=== PATIENT | female | born 1990 | race Caucasian/White ===

== ENCOUNTER 2019-04-04 09:39 | Outpatient (CLI) | payer BC ==
--- NOTE | 2019-04-04 13:55 | HP ---
HISTORY OF PRESENT ILLNESS: Ms. Meghan Bryan is a pleasant 28-year-old, who presents to the Wound Center for evaluation of an ulceration of the right lateral foot in the region of the fifth metatarsophalangeal joint. The patient states that she noted the presence of a callus for several months. She states that when the callus began causing pain on a daily basis in mid November, she applied drops, which she purchased from [employer] in the morning and evening. She states that within 3 days she had developed an open wound and over the next 3 to 4 days, the wound bed became "dark." The patient states that she was seen by her nurse practitioner, and for an infectious process associated with the wound, referred to Podiatry. The patient states that she was seen by Podiatry for 3 to 4 visits over the next 6 weeks. She states that from Podiatry, she was were referred to the [facility]. She states that between her last visit with Podiatry and her first Wound Center visit, she was diagnosed with diabetes mellitus for which she has been seen by Dr. Delgadillo. The patient states that she was seen at the [facility] every 3 weeks for approximately 10 weeks. She states that she has had a 20% decrease in the depth of the wound over these 10 weeks. She states that she has been prescribed 2 "rounds" of silver dressings. She states that she was placed in a total contact cast, which she was only able to tolerate for 2 days. She states that at work she has been on light duty since being seen by Podiatry. The patient was referred to the [facility] for a second opinion. PAST MEDICAL HISTORY: 1. Diabetes mellitus. 2. Arthritis. 3. Asthma. 4. PCOS. 5. Cerebral palsy. PAST SURGICAL HISTORY: Removal of cyst from left ovary. MEDICATIONS: Metformin. ALLERGIES: NO KNOWN DIAGNOSED ALLERGIES. SOCIAL HISTORY: Social history is significant for tobacco use of 1 pack of cigarettes per day for 10 years. The patient admits to the consumption of 1 to 2 drinks per year. FAMILY HISTORY: Family history is significant for diabetes mellitus. The patient states that both parents, maternal and paternal grandmothers and a great grandfather and great grandmother were all diagnosed with diabetes mellitus. Family history is negative for coronary artery disease. PHYSICAL EXAMINATION: VITAL SIGNS: Temperature 97.8, pulse 83, blood pressure 123/84. Accu-Chek 121. GENERAL: A 28-year-old female sitting on stretcher in examination room, in no acute distress. HEENT: Normocephalic and atraumatic. NECK: No nuchal rigidity. CHEST: Clear to auscultation. CV: Regular rate and rhythm. ABDOMEN: Soft. EXTREMITIES: An ulceration of the right lateral foot in the region of the fifth metatarsophalangeal joint is present, which measures approximately 0.9 x 0.7 cm. Pale granulation tissue is present within the wound margins. No purulent drainage is associated with the wound. No erythema of the skin surrounding the wound is present. No maceration of the skin of the periwound is noted. A dorsalis pedis pulse is palpable on the right. No significant edema of the right foot is present on exam today. ASSESSMENT AND PLAN: 1. Ulceration of right lateral foot in the region of the fifth metatarsophalangeal joint. Dressing changes of Medihoney, 4x4s, Kerlix, and an Shankar bandage will be initiated today. These dressing changes are to be performed on a daily basis after cleansing and irrigation. The patient will be performing her own dressing changes. No antibiotics will be prescribed today based upon the appearance of the wound. I will see Ms. Bryan again in 1 week. The patient states that she wishes to transfer her care to the [facility]. I have recommended fitting with diabetic shoes with inserts. The patient understands and is in agreement with the preceding treatment plan. 2. Diabetes mellitus. The patient's Accu-Chek in clinic today is 121. The patient has been told that for optimal wound healing, her blood glucoses should remain below 150. 3. Arthritis. 4. Asthma. 5. Polycystic ovary syndrome. 6. Cerebral palsy. Job ID: [id number]
[2019-04-04] MEDS ORDERED: Sodium Chloride 0.9% 15 ML NEB ONE (21:30)
== END 2019-04-04 09:40 | disposition home or self-care (01) ==
LOC: WCC 09:39
PROVIDERS: ATTEND Family Medicine
DX: E11.621 Type 2 diabetes mellitus with foot ulcer (principal); L97.529 Non-pressure chronic ulcer of other part of left foot with unspecified severity; M19.90 Unspecified osteoarthritis, unspecified site; J45.909 Unspecified asthma, uncomplicated; E28.2 Polycystic ovarian syndrome; G80.9 Cerebral palsy, unspecified
CPT/HCPCS: 36416; 97602; 99203; A4218; G0463

== ENCOUNTER 2019-04-13 09:16 | Outpatient (CLI) | payer BC ==
--- NOTE | 2019-04-13 10:30 | PRG ---
DATE OF SERVICE: 04/13/2019 HISTORY: Ms. Meghan Bryan is a very pleasant 28-year-old, who presents to the Wound Center for evaluation of an ulceration of the right lateral foot in the region of the fifth metatarsophalangeal joint. The patient previously stated that she noted the presence of a callus for several months. She stated that when the callus began causing pain on a daily basis in mid November, she applied drops, which she purchased from [employer] in the morning and evening. She stated that within 3 days, she had developed an open wound and over the next 3 to 4 days the wound bed became "dark." The patient stated that she was seen by her nurse practitioner and for an infectious process associated with the wound, referred to Podiatry. The patient stated that she was seen by Podiatry for 3 to 4 visits over the next 6 weeks. She stated that from Podiatry, she was referred to the [facility]. She stated that between her last visit with Podiatry and her first Wound Center visit, she was diagnosed with diabetes mellitus for which she has been seen by Dr. Delgadillo. The patient stated that that she was seen at the [facility] every 3 weeks for approximately 10 weeks. She stated that there had been a 20% decrease in the depth of the wound over these 10 weeks. She stated that she had been prescribed 2 "rounds" of silver dressings. She stated that she was placed in a total contact cast, which she was only able to tolerate for 2 days. She stated that at work, she had been placed on light duty since being seen by Podiatry. After being seen in the Wound Center here at [facility], the patient was placed on dressing changes of Medihoney, 4x4s, Kerlix, and an Shankar bandage. The patient states that she has been experiencing pain with the application of Medihoney. PHYSICAL EXAMINATION: VITAL SIGNS: Temperature 98.2, pulse 94, respirations 19, blood pressure 119/86. Accu-Chek 134. EXTREMITIES: An ulceration of the right lateral foot in the region of the fifth metatarsophalangeal joint is present, which measures approximately 0.7 x 0.6 cm. The dimensions of the wound at the time of the patient's last visit were approximately 0.9 x 0.7 cm. Granulation tissue is present within the wound margins. No purulent drainage is associated with the wound. No erythema of the skin surrounding the wound is present. No maceration of the skin of the periwound is noted. No significant edema of the right foot is present on exam today. ASSESSMENT AND PLAN: 1. Ulceration of right lateral foot in the region of the fifth metatarsophalangeal joint. Dressing changes of Medihoney, 4x4s, Kerlix, and an Shnakar bandage will be continued on a daily basis after cleansing and irrigation. The patient will continue to perform her own dressing changes. I will see Ms. Bryan again in 1 week. The patient has been seen by the spinning operator today for fitting with diabetic shoes with inserts. 2. Diabetes mellitus. The patient's Accu-Chek in clinic today is 134. The patient has been reminded that for optimal wound healing her blood glucoses should remain below 150. 3. Arthritis. 4. Asthma. 5. Polycystic ovary syndrome. 6. Cerebral palsy. Job ID: [id number]
[2019-04-13] MEDS ORDERED: Lidocaine 2% PF 100 mg/5 ml Syringe ONE (18:00)
[2019-04-13] MEDS ORDERED: Sodium Chloride 0.9% 15 ML NEB ONE (18:00)
== END 2019-04-13 09:17 | disposition home or self-care (01) ==
LOC: WCC 09:16
PROVIDERS: ATTEND Family Medicine
DX: E11.621 Type 2 diabetes mellitus with foot ulcer (principal); L97.519 Non-pressure chronic ulcer of other part of right foot with unspecified severity; M19.90 Unspecified osteoarthritis, unspecified site; E28.2 Polycystic ovarian syndrome; J45.909 Unspecified asthma, uncomplicated; G80.9 Cerebral palsy, unspecified
CPT/HCPCS: 36416; 97602; A4218; J2001

== ENCOUNTER 2019-04-28 08:44 | Outpatient (CLI) | payer BC ==
[2019-04-28] MEDS ORDERED: Sodium Chloride 0.9% 15 ML NEB ONE (09:00)
[2019-04-28] MEDS ORDERED: Lidocaine 2% 11 ML SYR ONE (09:00)
--- NOTE | 2019-04-28 10:03 | PRG ---
DATE OF SERVICE: 04/28/2019 HISTORY: Ms. Meghan Bryan is a very pleasant 29-year-old who presents to the Wound Center for evaluation of an ulceration of the right lateral foot in the region of the fifth metatarsophalangeal joint. Previously, the patient stated that she noted the presence of a callus for several months. She stated that when the callus began causing pain on a daily basis in mid November, she applied drops, which she purchased from [employer] in the morning and evening. She stated that within 3 days, she had developed an open wound and over the next 3 to 4 days, the wound bed became dark. The patient stated that she was seen by her nurse practitioner and for an infectious process associated with the wound, referred to Podiatry. The patient stated that she was seen by Podiatry for 3 to 4 visits over the next 6 weeks. She stated that from Podiatry, she was referred to the [facility]. She stated that between her last visit with Podiatry and her first Wound Center visit, she was diagnosed with diabetes mellitus for which she has been seen by Dr. Delgadillo. The patient stated that she was seen at the [facility] every 3 weeks for approximately 10 weeks. She stated that there had been a 20% decrease in the depth of the wound over these 10 weeks. She stated that she had been prescribed 2 "rounds" of silver dressings. She stated that she was placed in a total contact cast, which she was only able to tolerate for 2 days. She stated that at work, she had been placed on light duty since being seen by Podiatry. After being seen in the Wound Center here at [facility], the patient was placed on dressing changes of Medihoney, 4 x 4's, Kerlix, and an Shankar bandage. The patient states that she has been experiencing pain with the application of Medihoney, although the wound has improved in its appearance. OBJECTIVE: VITAL SIGNS: Temperature 97.9, pulse 82, respirations 20, and blood pressure 129/90. EXTREMITIES: An ulceration of the right lateral foot in the region of the fifth metatarsophalangeal joint is present, which measures approximately 0.9 x 0.6 cm. The dimensions of the wound at the time of the patient's last visit were approximately 0.7 x 0.6 cm. Granulation tissue albeit of poor quality is present within the wound margins. No purulent drainage is associated with the wound. No erythema of the skin surrounding the wound is present. No maceration of the skin of the periwound is noted. No significant edema of the right foot is present on exam today. LABORATORY DATA: Accu-Chek 156. ASSESSMENT AND PLAN: 1. Ulceration of right lateral foot in the region of the fifth metatarsophalangeal joint. Dressing changes of Medihoney will be discontinued. Dressing changes of Promogran, 4 x 4's, Kerlix, and an Shankar bandage will be initiated today. These dressing changes are to be performed on a daily basis or alternatively every 3 days. The patient will continue to perform her own dressing changes. I will see Ms. Bryan after imaging of the right foot to look for findings suggestive of osteomyelitis. The patient was previously seen by the merchandise presentation manager for fitting with diabetic shoes with inserts. 2. Diabetes mellitus. The patient's Accu-Chek in clinic today is 156. The patient has been reminded that for optimal wound healing, her blood glucoses should remain below 150. 3. Arthritis. 4. Asthma. 5. Polycystic ovary syndrome. 6. Cerebral palsy. Job ID: [id number]
== END 2019-04-28 08:45 | disposition home or self-care (01) ==
LOC: WCC 08:44
PROVIDERS: ATTEND Family Medicine
DX: E11.621 Type 2 diabetes mellitus with foot ulcer (principal); L97.519 Non-pressure chronic ulcer of other part of right foot with unspecified severity; M19.90 Unspecified osteoarthritis, unspecified site; J45.909 Unspecified asthma, uncomplicated; E28.2 Polycystic ovarian syndrome; G80.9 Cerebral palsy, unspecified
CPT/HCPCS: 36416; 97602; A4218

== ENCOUNTER 2019-05-05 07:39 | Outpatient (CLI) | payer BC ==
[2019-05-05] MEDS ORDERED: Gadobenate Dimeglumine 529 MG/1 ML (20ML VIAL) ONE (09:00)
--- NOTE | 2019-05-05 13:24 | MRI ---
MRI RIGHT FOOT WITH AND WITHOUT CONTRAST: HISTORY: Osteomyelitis, nonhealing wound. COMPARISON: None. FINDINGS: BONES: No abnormal loss of marrow signal throughout the forefoot, mid foot, or hindfoot to suggest osteomyel itis. No acute fracture or malalignment. SOFT TISSUES: There is soft tissue callus enthesophyte as well as a small phlegmonous collection along the medial p lantar aspect of the 5th small toe metatarsal head/proximal interphalangeal joint. TENDONS: No significant tenosynovitis.. MUSCLES: Normal signal and bulk. Intermetatarsal bursitis between the 1st and 2nd and 2nd and 3rd metatarsal heads. IMPRESSION: Soft tissue callus with phlegmonous collection and small soft tissue wound at the small toe, 5th meta tarsophalangeal joint. No evidence for osteomyelitis. POS: JUANCARLOS
== END 2019-05-05 07:40 | disposition home or self-care (01) ==
LOC: SCSMRI 07:39
PROVIDERS: ATTEND Family Medicine
DX: E11.621 Type 2 diabetes mellitus with foot ulcer (principal); S91.104D Unspecified open wound of right lesser toe(s) without damage to nail, subsequent encounter
CPT/HCPCS: A9577

== ENCOUNTER 2019-05-16 08:49 | Outpatient (CLI) | payer BC ==
[2019-05-16] MEDS ORDERED: Lidocaine 2% 11 ML SYR ONE (09:00)
[2019-05-16] MEDS ORDERED: Sodium Chloride 0.9% 15 ML NEB ONE (09:00)
--- NOTE | 2019-05-16 09:37 | PRG ---
DATE OF SERVICE: 05/16/2019 HISTORY: Ms. Meghan Bryan is a pleasant 29-year-old, who presents to the Wound Center for evaluation of an ulceration of the right lateral foot in the region of the fifth metatarsophalangeal joint. The patient previously stated that she noted the presence of a callus for several months. She stated that when the callus began causing pain on a daily basis in mid-November, she applied drops, which she purchased from [employer] in the morning and in the evening. She stated that within the wound and over the next 3 to 4 days, the wound became dark. The patient stated that she was seen by her nurse practitioner and for an infectious process associated with the wound was referred to Podiatry. The patient stated that she was seen by Podiatry for 3 to 4 visits over the next 6 weeks. She stated that from the podiatry, she was referred to the [facility]. She stated that between her last visit with Podiatry and her first Wound Center visit, she was diagnosed with diabetes mellitus, for which, she is followed by Dr. Delgadillo. The patient stated that she was seen at the [facility] every 3 weeks for approximately 10 weeks. She stated that there has been a 20% decrease in the depth of the wound over the 10 weeks. She stated that she had been prescribed 2 "rounds" of silver dressings. She stated that she was placed in a total contact cast, which she was only able to tolerate for 2 days. She stated that at work, she had been placed on light duty since being seen by Podiatry. After being seen in the [place] [facility], the patient was placed on dressing changes of Medihoney, 4x4s, Kerlix, and an Shankar bandage, although, the patient experienced pain with the application of Medihoney, the patient stated that the wound improved in its appearance. Since the patient's last visit, Ms. Bryan underwent MRI of the right foot with and without contrast, which showed no evidence for osteomyelitis. PHYSICAL EXAMINATION: VITAL SIGNS: Temperature 97.6, pulse 82, respirations 16, blood pressure 143/82. Accu-Chek 148. EXTREMITIES: An ulceration of the right lateral foot in the region of the fifth metatarsophalangeal joint is present, which measures approximately 0.8 x 0.9. The dimensions of the wound at the time of the patient's visit on 04/28/2019 were approximately 0.9 x 0.6 cm. Granulation tissue albeit a poor quality is present within the wound margins. No purulent drainage is associated with the wound. No erythema of the skin surrounding the wound is present. No maceration of the skin of the periwound is noted. A dorsalis pedis pulse is easily palpable on the right. No significant edema of the right foot is present on exam today. After copious irrigation of the wound bed with normal saline, MatriStem sheet 3 x 3.5 cm was applied to the wound bed. The MatriStem sheet was secured to the wound bed with Steri-Strips and Mastisol over the periwound. The ulceration was then dressed with an ABD followed by the 3M Coban 2 Layer Compression System. Adaptic was placed over the MatriStem sheet prior to application of the ABD and the 3M Coban 2 Layer Compression System. ASSESSMENT AND PLAN: 1. Ulceration of right lateral foot in the region of the fifth metatarsophalangeal joint. MatriStem sheet was applied to the ulceration today. I will see Ms. Bryan again in 1 week. At this time, consideration will be given to another placement of MatriStem sheet. The patient was previously seen by the flight engineer manager for fitting with diabetic shoes with inserts. 2. Diabetes mellitus. The patient's Accu-Chek in clinic today is 148. The patient has been reminded that for optimal wound healing, her blood glucoses should remain below 150. 3. Arthritis. 4. Asthma. 5. Polycystic ovary syndrome. 6. Cerebral palsy. Job ID: [id number]
== END 2019-05-16 08:50 | disposition home or self-care (01) ==
LOC: WCC 08:49
PROVIDERS: ATTEND Family Medicine
DX: E11.621 Type 2 diabetes mellitus with foot ulcer (principal); L97.519 Non-pressure chronic ulcer of other part of right foot with unspecified severity; M19.90 Unspecified osteoarthritis, unspecified site; J45.909 Unspecified asthma, uncomplicated; G80.9 Cerebral palsy, unspecified; E28.2 Polycystic ovarian syndrome
CPT/HCPCS: A4218; Q4166-KX-JC

== ENCOUNTER 2019-05-25 09:07 | Outpatient (CLI) | payer BC ==
[~2019-05-25 09:07] MED LIST: Sodium Chloride 0.9% 15 ML NEB ONE
--- NOTE | 2019-05-25 10:01 | PRG ---
DATE OF SERVICE: 05/25/2019 SUBJECTIVE: Ms. Meghan Bryan is a pleasant 29-year-old, who presents to the Wound Center for evaluation of an ulceration of the right lateral foot in the region of the fifth metatarsophalangeal joint. Previously, the patient stated that she noted the presence of a callus for several months. She stated that when the callus began causing pain on a daily basis in mid November, she applied drops, which she purchased from [email or web address] in the morning and in the evening she stated that within the wound margins over the next 3 to 4 days, the wound became dark. The patient stated that she was seen by her nurse practitioner and for an infectious process associated with the wound was referred to Podiatry. The patient stated that she was seen by Podiatry for 3 to 4 visits over the next 6 weeks. She stated that from Podiatry, she was referred to the [facility]. She stated that between her last visit with Podiatry and her first Wound Center visit, she was diagnosed with diabetes mellitus for which she is followed by Dr. Delgadillo. The patient stated that she was seen at the [facility] every 3 weeks for approximately 10 weeks. She stated that there had been a 20% decrease in the depth of the wound over the 10 weeks. She stated that she had been prescribed 2 "rounds" of silver dressings. She stated that she was placed in a total contact cast, which she was only able to tolerate for 2 days. She stated that at work, she had been placed on light duty since being seen by Podiatry. After being seen in the [place] [place], the patient was placed on dressing changes of Medihoney. Although the patient experienced pain with the application of Medihoney, the patient stated that the wound improved in its appearance. The patient underwent MRI of the right foot with and without contrast, which showed no evidence for osteomyelitis on 05/05/2019. Presently, the patient is receiving treatment with MatriStem sheet. OBJECTIVE: VITAL SIGNS: Temperature 98.0, pulse 65, respirations 17, blood pressure 135/91. Accu-Chek 192. EXTREMITIES: An ulceration of the right foot in the region of the fifth metatarsophalangeal joint is present, which measures approximately 1.0 x 0.9 cm. Granulation tissue is visible within the wound margins. No purulent drainage is associated with the wound. No erythema of the skin surrounding the wound is present. No maceration of the skin of the periwound is noted. A dorsalis pedis pulse and a posterior tibial pulse are both palpable on the right. No significant edema of the right foot is present on exam today. After copious irrigation of the wound bed with normal saline, MatriStem sheet 3 x 3.5 cm was applied to the wound bed. The MatriStem sheet was secured to the wound bed with Steri-Strips and Mastisol over the periwound. The ulceration was then dressed with Mepitel, an ABD, and the [employer] Coban 2 Layer Compression System. ASSESSMENT AND PLAN: 1. Ulceration of right lateral foot in the region of the fifth metatarsophalangeal joint. MatriStem sheet was applied to the ulceration today. I will see Ms. Bryan again in 1 week. At this time, consideration will be given to another placement of MatriStem sheet. The patient has been seen by the spiral tube winder helper today and received diabetic shoes with inserts. 2. Diabetes mellitus. The patient's Accu-Chek in clinic today is 192. The patient has been reminded that for optimal wound healing, her blood glucoses should remain below 150. 3. Arthritis. 4. Asthma. 5. Polycystic ovary syndrome. 6. Cerebral palsy. Job ID: [id number]
== END 2019-05-25 09:08 | disposition home or self-care (01) ==
LOC: WCC 09:07
PROVIDERS: ATTEND Family Medicine
DX: E11.621 Type 2 diabetes mellitus with foot ulcer (principal); L97.519 Non-pressure chronic ulcer of other part of right foot with unspecified severity; M19.90 Unspecified osteoarthritis, unspecified site; J45.909 Unspecified asthma, uncomplicated; G80.9 Cerebral palsy, unspecified; E28.2 Polycystic ovarian syndrome
CPT/HCPCS: 36416; A4218; C5275; Q4166-KX-JC

== ENCOUNTER 2019-05-30 14:28 | Outpatient (CLI) | payer BC ==
--- NOTE | 2019-05-30 14:06 | PRG ---
DATE OF SERVICE: 05/30/2019 HISTORY: Ms. Meghan Bryan is a very pleasant 29-year-old, who presents to the Wound Center for evaluation of an ulceration of the right lateral foot in the region of the fifth metatarsophalangeal joint. The patient previously stated that she noted the presence of a callus for several months. She stated that when the callus began causing pain on a daily basis in mid November, she applied drops, which she purchased from [employer] in the morning and in the evening. She stated that within the wound margins over the next 3 to 4 days, the wound became dark. The patient stated that she was seen by her nurse practitioner and for an infectious process associated with the wound, was referred to Podiatry. The patient stated that she was seen by Podiatry for 3 to 4 visits over the next 6 weeks. She stated that from Podiatry, she was referred to the [facility]. She stated that between her last visit with Podiatry and her first Wound Center visit, she was diagnosed with diabetes mellitus, for which she is followed by Dr. Delgadillo. The patient stated that she was seen at the [facility] every 3 weeks for approximately 10 weeks. She stated that there had been a 20% decrease in the depth of the wound over the 10 weeks. She stated that she had been prescribed 2 "rounds" of silver dressings. She stated that she was placed in a total contact cast, which she was only able to tolerate for 2 days. She stated that at work, she had been placed on light duty since being seen by Podiatry. After being seen in the Wound Center at [facility], the patient was placed on dressing changes of Medihoney. Although the patient experienced pain with the application of Medihoney, the patient stated that the wound improved in its appearance. The patient underwent MRI of the right foot with and without contrast, which showed no evidence for osteomyelitis on 05/05/2019. Currently, the patient is receiving treatment with MatriStem sheet. PHYSICAL EXAMINATION: VITAL SIGNS: Temperature 98.1, pulse 74, respirations 16, blood pressure 129/85. Accu-Chek 162. EXTREMITIES: An ulceration of the right foot in the region of the fifth metatarsophalangeal joint is present, which measures approximately 1.0 x 0.8 cm. The dimensions of the wound at the time of the patient's last visit were approximately 1.0 x 0.9 cm. Granulation tissue is visible within the wound margins. Nonviable tissue present within the wound margins was debrided with an excisional full-thickness debridement with the use of a curette. No purulent drainage is associated with the wound. No erythema of the skin surrounding the wound is present. No maceration of the skin of the periwound is noted. No significant edema of the right foot is present on exam today. ASSESSMENT AND PLAN: 1. Ulceration of right lateral foot in the region of the fifth metatarsophalangeal joint. Dressing changes of Holly are to be performed on a daily basis after cleansing and irrigation. The patient will be performing her own dressing changes. Adhesive felt will be utilized at the time of dressing changes in conjunction with Holly. I will see Ms. Bryan again in 1 week. At this time, consideration will be given to another placement of MatriStem sheet. The patient previously received diabetic shoes with inserts. Gauze will be utilized in conjunction with the dressing changes of Holly as a secondary dressing. 2. Diabetes mellitus. The patient's Accu-Chek in clinic today is 162. The patient has been reminded that for optimal wound healing, her blood glucoses should remain below 150. 3. Arthritis. 4. Asthma. 5. Polycystic ovary syndrome. 6. Cerebral palsy. Job ID: [id number]
[2019-05-30] MEDS ORDERED: Lidocaine 2% PF 100 mg/5 ml Syringe ONE (21:13)
[2019-05-30] MEDS ORDERED: Sodium Chloride 0.9% 15 ML NEB ONE (21:13)
== END 2019-05-30 14:29 | disposition home or self-care (01) ==
LOC: WCC 14:28
PROVIDERS: ATTEND Family Medicine
DX: E11.621 Type 2 diabetes mellitus with foot ulcer (principal); L97.519 Non-pressure chronic ulcer of other part of right foot with unspecified severity; M19.90 Unspecified osteoarthritis, unspecified site; J45.909 Unspecified asthma, uncomplicated; E28.2 Polycystic ovarian syndrome; G80.9 Cerebral palsy, unspecified
CPT/HCPCS: A4218; J2001

== ENCOUNTER 2019-06-08 08:38 | Outpatient (CLI) | payer BC ==
--- NOTE | 2019-06-08 09:34 | PRG ---
DATE OF SERVICE: 06/08/2019 HISTORY: Ms. Meghan Bryan is a very pleasant 29-year-old, who presents to the Wound Center for evaluation of an ulceration of the right lateral foot in the region of the 5th metatarsophalangeal joint. The patient previously stated that she noted the presence of a callus for several months. She stated that when the callus began causing pain on a daily basis in mid November, she applied drops which she purchased from [employer] in the morning and in the evening. She stated that within the wound margins over the next 3 to 4 days, the wound became dark. The patient stated that she was seen by her nurse practitioner, and for an infectious process associated with the wound, was referred to Podiatry. The patient stated that she was seen by Podiatry for 3 to 4 visits over the next 6 weeks. She stated that from Podiatry, she was referred to the [facility]. She stated that between her last visit with Podiatry and her first Wound Center visit, she was diagnosed with diabetes mellitus, for which she is followed by Dr. Delgadillo. The patient stated that she was seen at the [facility] every 3 weeks for approximately 10 weeks. She stated that there had been a 20% decrease in the depth of the wound over the 10 weeks. She stated that she had been prescribed 2 "rounds" of silver dressings. She stated that she was placed in a total contact cast which she was only able to tolerate for 2 days. She stated that at work, she had been placed on light duty since being seen by Podiatry. After being seen in the Wound Center at [facility], the patient was placed on dressing changes of Medihoney. Although the patient experienced pain with the application of Medihoney, the patient stated that the wound improved in its appearance. The patient underwent MRI of the right foot with and without contrast which showed no evidence for osteomyelitis on 05/05/2019. Presently, the patient is receiving treatment with MatriStem sheet. PHYSICAL EXAMINATION: VITAL SIGNS: Temperature 98, pulse 80, respirations 20, blood pressure 131/78. Accu-Chek 184. EXTREMITIES: An ulceration of the right foot in the region of the 5th metatarsophalangeal joint is present which measures approximately 0.8 x 0.9 cm. The dimensions of the wound at the time of the patient's last visit were approximately 1.0 x 0.8 cm. Granulation tissue is visible within the wound margins. No purulent drainage is associated with the wound. No erythema of the skin surrounding the wound is present. No maceration of the skin of the periwound is noted. No significant edema of the right foot is present on exam today. After copious irrigation of the wound bed with normal saline, MatriStem sheet 3 x 3.5 cm was applied to the wound bed. After the MatriStem sheet was secured to the wound bed with Mastisol and Steri-Strips, Adaptic was placed over the wound followed by an ABD and the [employer] Coban 2 Layer Compression System. ASSESSMENT AND PLAN: 1. Ulceration of right lateral foot in the region of the 5th metatarsophalangeal joint. MatriStem sheet was applied to the wound bed of the ulceration today. I will see Ms. Bryan in 1 week. At this time, consideration will be given to another placement of MatriStem sheet. 2. Diabetes mellitus. The patient's Accu-Chek in clinic today is 184. The patient has been reminded that for optimal wound healing, her blood glucoses should remain below 150. 3. Arthritis. 4. Asthma. 5. Polycystic ovary syndrome. 6. Cerebral palsy. Job ID: [id number]
[2019-06-08] MEDS ORDERED: Lidocaine 2% PF 100 mg/5 ml Syringe ONE ×2 (11:11→18:00)
[2019-06-08] MEDS ORDERED: Sodium Chloride 0.9% 15 ML NEB ONE ×2 (11:11→18:00)
== END 2019-06-08 08:39 | disposition home or self-care (01) ==
LOC: WCC 08:38
PROVIDERS: ATTEND Family Medicine
DX: E11.621 Type 2 diabetes mellitus with foot ulcer (principal); L97.519 Non-pressure chronic ulcer of other part of right foot with unspecified severity; M19.90 Unspecified osteoarthritis, unspecified site; J45.909 Unspecified asthma, uncomplicated; E28.2 Polycystic ovarian syndrome; G80.9 Cerebral palsy, unspecified
CPT/HCPCS: A4218; C5275; J2001; Q4166-KX-JC

== ENCOUNTER 2019-06-15 08:29 | Outpatient (CLI) | payer BC ==
--- NOTE | 2019-06-15 09:30 | PRG ---
DATE OF SERVICE: 06/15/2019 HISTORY: Ms. Meghan Bryan is a very pleasant 29-year-old, who presents to the Wound Center for evaluation of an ulceration of the right lateral foot in the region of the fifth metatarsophalangeal joint. Previously, the patient stated that she noted the presence of a callus for several months. She stated that when the callus began causing pain on a daily basis in mid November, she applied drops, which she purchased from [employer] in the morning and in the evening. She stated that within the wound margins over the next 3 to 4 days, the wound became dark. The patient stated that she was seen by her nurse practitioner and for the infectious process associated with the wound was referred to Podiatry. The patient stated that she was seen by Podiatry for 3 to 4 visits over the next 6 weeks. She stated that from Podiatry, she was referred to the [facility]. She stated that between her last visit with Podiatry and her first Wound Center visit, she was diagnosed with diabetes mellitus for which she is followed by Dr. Delgadillo. The patient stated that she was seen at the [facility] every 3 weeks for approximately 10 weeks. She stated that there had been a 20% decrease in the depth of the wound over the 10 weeks. She stated that she had been prescribed 2 "rounds" silver dressing. She stated that she was placed in a total contact cast, which she was only able to tolerate for 2 days. She stated that at work she had been placed on light duty since being seen by Podiatry. After being seen in the Wound Center at [facility], the patient was placed on dressing changes of Medihoney. Although, the patient experienced pain with the application of Medihoney, the patient stated that the wound improved in its appearance. The patient underwent MRI of the right foot with and without contrast, which showed no evidence for osteomyelitis on 05/05/2019. Currently, the patient is receiving treatment with MatriStem sheets. OBJECTIVE: VITAL SIGNS: Temperature 97.9, pulse 74, respirations 20, and blood pressure 138/92. EXTREMITIES: An ulceration of the right foot in the region of the fifth metatarsophalangeal joint is present, which measures approximately 0.8 x 0.9 cm. The dimensions of the wound at the time of the patient's last visit were approximately 0.8 x 0.9 cm. Granulation tissue is visible within the wound margins. No purulent drainage is associated with the wound. No erythema of the skin surrounding the wound is present. No maceration of the skin of the periwound is noted. No significant edema of the right foot is present on exam today. After copious irrigation of the wound bed with normal saline, MatriStem sheet 3 x 3.5 cm was applied to the wound bed. After the MatriStem sheet was secured to the wound bed with Mastisol and Steri-Strips, Adaptic was placed over the wound followed by an ABD and 3M Coban 2 Layer Compression System. LABORATORY DATA: Accu-Chek 226. ASSESSMENT AND PLAN: 1. Ulceration of right lateral foot in the region of the fifth metatarsophalangeal joint. MatriStem sheet was applied to the wound bed of the ulceration today. I will see Ms. Bryan in 1 week. If the dimensions of the wound fail to decrease, consideration will be given to a trial of Regranex. 2. Diabetes mellitus. The patient's Accu-Chek in clinic today is 226. The patient has been reminded that for optimal wound healing her blood glucoses should remain below 150. 3. Arthritis. 4. Asthma. 5. Polycystic ovary syndrome. 6. Cerebral palsy. Job ID: [id number]
== END 2019-06-15 08:30 | disposition home or self-care (01) ==
LOC: WCC 08:29
PROVIDERS: ATTEND Family Medicine
DX: E11.621 Type 2 diabetes mellitus with foot ulcer (principal); L97.519 Non-pressure chronic ulcer of other part of right foot with unspecified severity; M19.90 Unspecified osteoarthritis, unspecified site; J45.909 Unspecified asthma, uncomplicated; E28.2 Polycystic ovarian syndrome; G80.9 Cerebral palsy, unspecified
CPT/HCPCS: 36416; Q4166-KX-JC

== ENCOUNTER 2019-06-22 08:01 | Outpatient (CLI) | payer BC ==
[2019-06-22] MEDS ORDERED: Sodium Chloride 0.9% 15 ML NEB ONE (09:00)
--- NOTE | 2019-06-22 15:59 | PRG ---
DATE OF SERVICE: 06/22/2019 SUBJECTIVE HISTORY: Ms. Meghan Bryan is a very pleasant 29-year-old, who presents to the Wound Center for evaluation of an ulceration of the right lateral foot in the region of the fifth metatarsophalangeal joint. Previously, the patient stated that she noted the presence of a callus for several months. She stated that when the callus began causing pain on a daily basis in mid November, she applied drops which she purchased from [employer] in the morning and in the evening. She stated that within the wound margins over the next 3 to 4 days, the wound became dark. The patient stated that she was seen by her nurse practitioner and for the infectious process associated with the wound was referred to Podiatry. The patient stated that she was seen by Podiatry for 3 to 4 visits over the next 6 weeks. She stated that from Podiatry, she was referred to the [facility]. She stated that between her last visit with Podiatry and her first Wound Center Visit, she was diagnosed with diabetes mellitus for which she is followed by Dr. Delgadillo. The patient stated that she was seen at the [facility] every 3 weeks for approximately 10 weeks. She stated that there had been a 20% decrease in the depth of the wound over the 10 weeks. She stated that she had been prescribed 2 "rounds" of silver dressing. She stated that she was placed in a total contact cast which she was only able to tolerate for 2 days. She stated that at work, she had been placed on light duty since being seen by Podiatry. After being seen in the Wound Center at [facility], the patient was placed on dressing changes of Medihoney. Although the patient experienced pain with the application of Medihoney. The patient stated that the wound improved in its appearance. The patient underwent MRI of the right foot with and without contrast which showed no evidence for osteomyelitis on 05/05/2019. Presently, the patient is receiving treatment with MatriStem sheet. PHYSICAL EXAMINATION: VITAL SIGNS: Temperature 97.7, pulse 79, respirations 19, blood pressure 135/91. Accu-Chek 215. EXTREMITIES: An ulceration of the right foot in the region of the fifth metatarsophalangeal joint is present, which measures approximately 0.8 x 0.7 cm. The dimensions of the wound at the time of the patient's last visit were approximately 0.8 x 0.9 cm. Granulation tissue is visible within the wound margins. No purulent drainage is associated with the wound. No erythema of the skin surrounding the wound is present. No maceration of the skin of the periwound is noted. No significant edema of the right foot is present on exam today. After copious irrigation of the wound bed with normal saline, MatriStem sheet 3 x 3.5 cm was applied to the wound bed after the MatriStem sheet was secured to the wound bed with Mastisol and Steri-Strips. Adaptic was placed over the wound followed by an ABD and 3M Coban 2 Layer Compression System. ASSESSMENT AND PLAN: 1. Ulceration of right lateral foot in the region of the fifth metatarsophalangeal joint. MatriStem sheet was applied to the wound bed of the ulceration today. I will see Ms. Bryan again in 1 week. Again, I have reiterated to Ms. Bryan if the dimensions of the wound failed to decrease, consideration will be given to a trial of Regranex. 2. Diabetes mellitus. The patient's Accu-Chek in clinic today is 250. The patient has been reminded that for optimal wound healing her blood glucoses should remain below 150. 3. Arthritis. 4. Asthma. 5. Polycystic ovary syndrome. 6. Cerebral palsy. Job ID: [id number]
== END 2019-06-22 08:02 | disposition home or self-care (01) ==
LOC: WCC 08:01
PROVIDERS: ATTEND Family Medicine
DX: E11.621 Type 2 diabetes mellitus with foot ulcer (principal); L97.519 Non-pressure chronic ulcer of other part of right foot with unspecified severity; M19.90 Unspecified osteoarthritis, unspecified site; J45.909 Unspecified asthma, uncomplicated; E28.2 Polycystic ovarian syndrome; G80.9 Cerebral palsy, unspecified
CPT/HCPCS: A4218; C5275; Q4166-KX-JC

== ENCOUNTER 2019-06-29 07:44 | Outpatient (CLI) | payer BC ==
--- NOTE | 2019-06-29 09:06 | PRG ---
DATE OF SERVICE: 06/29/2019 HISTORY: Ms. Meghan Bryan is a very pleasant 29-year-old, who presents to the Wound Center for evaluation of an ulceration of the right lateral foot in the region of the fifth metatarsophalangeal joint. The patient previously stated that she noted the presence of a callus for several months. She stated that when the callus began causing pain on a daily basis in mid-November, she applied drops, which she purchased from [employer] in the morning and in the evening. She stated that within the wound margins over the next 3 to 4 days, the wound became dark. The patient stated that she was seen by her nurse practitioner and for the infectious process associated with the wound was referred to Podiatry. The patient stated that she was seen by Podiatry for 3 to 4 visits over the next 6 weeks. She stated that from Podiatry, she was referred to the [facility]. She stated that between her last visit with Podiatry, and her first Wound Center visit, she was diagnosed with diabetes mellitus for which she is followed by Dr. Delgadillo. The patient stated that she was seen at the [facility] every 3 weeks for approximately 10 weeks. She stated that there had been a 20% decrease in the depth of the wound over the 10 weeks. She stated that she had been prescribed 2 "rounds" of a silver dressing. She stated that she was placed in a total contact cast, which she was only able to tolerate for 2 days. She stated that at work, she had been placed on light duty since being seen by Podiatry. After being seen in the Wound Center at [facility], the patient was placed on dressing changes of Medihoney. Although the patient experienced pain with the application of Medihoney, the patient stated that the wound improved in its appearance. The patient underwent MRI of the right foot with and without contrast, which showed no evidence for osteomyelitis on 05/05/2019. Currently, the patient is receiving treatment with MatriStem sheet. PHYSICAL EXAMINATION: VITAL SIGNS: Temperature 98.0, pulse 88, respirations 17, blood pressure 111/74, Accu-Chek 180. EXTREMITIES: An ulceration of the right foot in the region of the fifth metatarsophalangeal joint is present, which measures approximately 0.8 x 0.7 cm. The dimensions of the wound at the time of the patient's last visit were also approximately 0.8 x 0.7 cm. Granulation tissue is visible within the wound margins. No purulent drainage is associated with the wound. No erythema of the skin surrounding the wound is present. No maceration of the skin of the periwound is noted. No significant edema of the right foot is present on exam today. ASSESSMENT AND PLAN: 1. Ulceration of right lateral foot in the region of the fifth metatarsophalangeal joint. The patient states she will be traveling to [place] in the near future. Therefore, treatment with MatriStem sheet will be suspended. Treatment with a skin substitute will be resumed once the patient has returned from [place]. In the meantime, the patient is to perform dressing changes of Multidex powder on a daily basis after cleansing and irrigation. Gauze will be utilized as a secondary dressing. I have explained to the patient that once she returns from [place], consideration will be given to treatment with EpiFix. The patient understands and is in agreement with the preceding treatment plan. 2. Diabetes mellitus. The patient's Accu-Chek in clinic today is 180. The patient has been reminded that for optimal wound healing her blood glucoses should remain below 150. 3. Arthritis. 4. Asthma. 5. Polycystic ovary syndrome. 6. Cerebral palsy. Job ID: [id number]
[2019-06-29] MEDS ORDERED: Sodium Chloride 0.9% 15 ML NEB ONE (18:00)
== END 2019-06-29 07:45 | disposition home or self-care (01) ==
LOC: WCC 07:44
PROVIDERS: ATTEND Family Medicine
DX: E11.621 Type 2 diabetes mellitus with foot ulcer (principal); L97.519 Non-pressure chronic ulcer of other part of right foot with unspecified severity; J45.909 Unspecified asthma, uncomplicated; M19.90 Unspecified osteoarthritis, unspecified site; E28.2 Polycystic ovarian syndrome; G80.9 Cerebral palsy, unspecified
CPT/HCPCS: 29581; A4218

== ENCOUNTER 2019-07-13 15:40 | Outpatient (CLI) | payer BC ==
--- NOTE | 2019-07-13 09:10 | PRG ---
DATE OF SERVICE: 07/13/2019 HISTORY: Ms. Meghan Bryan is a very pleasant 29-year-old, who presents to the Wound Center for evaluation of an ulceration of the right lateral foot in the region of the fifth metatarsophalangeal joint. The patient has completed a course of treatment with MatriStem sheet. Since the patient's visit on 06/29/2019, Ms. Bryan has been performing dressing changes of Multidex powder for the ulceration of her right lateral foot. Ms. Bryan again complains of pain associated with her ulceration for which she is taking Tylenol No. 3. The patient has no other complaints today. She denies any fever or chills. PHYSICAL EXAMINATION: VITAL SIGNS: Temperature 98.6, pulse 106, respirations 20, blood pressure 136/90, Accu-Chek 184. EXTREMITIES: An ulceration of the right foot in the region of the fifth metatarsophalangeal joint is present, which measures approximately 0.7 x 0.5 cm. The dimensions of the wound at the time of the patient's last visit were approximately 0.8 x 0.7 cm. Granulation tissue is visible within the wound margins. No purulent drainage is associated with the wound. No erythema of the skin surrounding the wound is present. No maceration of the skin of the periwound is noted. No significant edema of the right foot is present on exam today. After copious irrigation of the wound bed with normal saline, EpiFix 8 mm was applied to the wound bed followed by Adaptic, secured with Steri-Strips and Mastisol. The ulceration was then dressed with an ABD followed by the [employer] Coban 2 Layer Compression System. ASSESSMENT AND PLAN: 1. Ulceration of right lateral foot in the region of the fifth metatarsophalangeal joint. EpiFix was applied to the ulceration of the right lateral foot today. I will see Ms. Bryan again in 1 week. At this time, consideration will be given to another placement of EpiFix. 2. Diabetes mellitus. The patient's Accu-Chek in clinic today is 184. The patient has been reminded that for optimal wound healing her blood glucoses should remain below 150. 3. Arthritis. 4. Asthma. 5. Polycystic ovary syndrome. 6. Cerebral palsy. Job ID: [id number]
== END 2019-07-13 15:41 | disposition home or self-care (01) ==
LOC: WCC 15:40
PROVIDERS: ATTEND Family Medicine
DX: E11.621 Type 2 diabetes mellitus with foot ulcer (principal); L97.519 Non-pressure chronic ulcer of other part of right foot with unspecified severity; M19.90 Unspecified osteoarthritis, unspecified site; J45.909 Unspecified asthma, uncomplicated; E28.2 Polycystic ovarian syndrome; G80.9 Cerebral palsy, unspecified
CPT/HCPCS: A4218; Q4186-KX-JC

== ENCOUNTER 2019-07-20 08:16 | Outpatient (CLI) | payer BC ==
[2019-07-20] MEDS ORDERED: Sodium Chloride 0.9% 15 ML NEB ONE (11:00)
== END 2019-07-20 08:17 | disposition home or self-care (01) ==
LOC: WCC 08:16
PROVIDERS: ATTEND Family Medicine
DX: E11.621 Type 2 diabetes mellitus with foot ulcer (principal); L97.519 Non-pressure chronic ulcer of other part of right foot with unspecified severity; T25.4 Corrosion of unspecified degree of ankle and foot
CPT/HCPCS: 29581; A4218

== ENCOUNTER 2019-07-27 09:15 | Outpatient (CLI) | payer BC ==
[~2019-07-27 09:15] MED LIST changes: +Lidocaine 2% 11 ML SYR ONE
--- NOTE | 2019-07-27 10:00 | PRG ---
DATE OF SERVICE: 07/27/2019 HISTORY: Ms. Meghan Bryan is a very pleasant 29-year-old, who presents to the Wound Center for evaluation of an ulceration of the right lateral foot in the region of the fifth metatarsophalangeal joint. The patient has completed a course of treatment with MatriStem sheet. The patient is presently receiving treatment with EpiFix for the right lateral foot ulceration. PHYSICAL EXAMINATION: VITAL SIGNS: Temperature 97.9, pulse 96, respirations 18, and blood pressure 141/89. EXTREMITIES: An ulceration of the right lateral foot in the region of the fifth metatarsophalangeal joint is present, which measures approximately 0.9 x 0.8 cm. Granulation tissue, albeit of poor quality, is visible within the wound margins. Nonviable tissue present within the wound margins was debrided with an excisional full-thickness debridement with the use of a curette. No purulent drainage is associated with the wound. No erythema of the skin surrounding the wound is present. No maceration of the skin of the periwound is noted. No significant edema of the right foot is present on exam today. After copious irrigation of the wound bed with normal saline, EpiFix 8 mm was applied to the wound bed followed by Adaptic, secured with Steri-Strips and Mastisol. The ulceration was then dressed with an ABD followed by the [employer] Coban 2 Layer Compression System. LABORATORY DATA: Accu-Chek 194. ASSESSMENT AND PLAN: 1. Ulceration of right lateral foot in the region of the fifth metatarsophalangeal joint, EpiFix was applied to the ulceration of the right lateral foot today. I will see Ms. Bryan again in 1 week. At this time, consideration will be given to another placement of EpiFix. 2. Diabetes mellitus. The patient's Accu-Chek in clinic today is 194. The patient has been reminded that for optimal wound healing her blood glucoses should remain below 150. 3. Arthritis. 4. Asthma. 5. Polycystic ovary syndrome. 6. Cerebral palsy. Job ID: [id number]
== END 2019-07-27 09:16 | disposition home or self-care (01) ==
LOC: WCC 09:15
PROVIDERS: ATTEND Family Medicine
DX: E11.621 Type 2 diabetes mellitus with foot ulcer (principal); L97.519 Non-pressure chronic ulcer of other part of right foot with unspecified severity; M19.90 Unspecified osteoarthritis, unspecified site; J45.909 Unspecified asthma, uncomplicated; E28.2 Polycystic ovarian syndrome; G80.9 Cerebral palsy, unspecified
CPT/HCPCS: A4218; Q4186-KX-JC

== ENCOUNTER 2019-08-03 08:23 | Outpatient (CLI) | payer BC ==
[2019-08-03] MEDS ORDERED: Sodium Chloride 0.9% 15 ML NEB ONE (09:00)
--- NOTE | 2019-08-03 09:12 | PRG ---
DATE OF SERVICE: 08/03/2019 SUBJECTIVE: Ms. Meghan Bryan is a very pleasant 29-year-old who presents to the Wound Center for evaluation of an ulceration of the right lateral foot in the region of the fifth metatarsophalangeal joint. The patient has completed a course of treatment with MatriStem. At the time of the patient's last visit, EpiFix was applied to the ulceration of the right lateral foot. The patient has no complaints today. She denies any fever or chills. OBJECTIVE: VITAL SIGNS: Temperature 97.6, pulse 90, respirations 20, and blood pressure 113/75. Accu-Chek 134. EXTREMITIES: An ulceration of the right lateral foot in the region of the fifth metatarsophalangeal joint is present, which measures approximately 0.7 x 0.7 cm. Granulation tissue is visible within the wound margins. No purulent drainage is associated with the wound. No erythema of the skin surrounding the wound is present. No maceration of the skin of the periwound is noted. No significant edema of the right foot is present on exam today. ASSESSMENT AND PLAN: 1. Ulceration of right lateral foot in the region of the fifth metatarsophalangeal joint. Arrangements will be made for the home delivery of Regranex. The patient is to perform dressing changes of her Granix on a daily basis after cleansing and irrigation. I will see Ms. Bryan again in 2 weeks. 2. Diabetes mellitus. The patient's Accu-Chek in clinic today is 134. The patient has been reminded that for optimal wound healing, her blood glucoses should remain below 150. 3. Arthritis. 4. Asthma. 5. Polycystic ovarian syndrome. 6. Cerebral palsy. Job ID: [id number]
== END 2019-08-03 08:24 | disposition home or self-care (01) ==
LOC: WCC 08:23
PROVIDERS: ATTEND Family Medicine
DX: E11.621 Type 2 diabetes mellitus with foot ulcer (principal); L97.519 Non-pressure chronic ulcer of other part of right foot with unspecified severity; M19.90 Unspecified osteoarthritis, unspecified site; J45.909 Unspecified asthma, uncomplicated; E28.2 Polycystic ovarian syndrome; G80.9 Cerebral palsy, unspecified
CPT/HCPCS: 97602; A4218

== ENCOUNTER 2019-08-24 11:35 | Outpatient (CLI) | payer BC ==
[~2019-08-24 11:35] MED LIST changes: -Lidocaine 2% 11 ML SYR ONE; +Lidocaine 2% PF 100 mg/5 ml Syringe ONE
--- NOTE | 2019-08-24 12:07 | PRG ---
DATE OF SERVICE: 08/24/2019 HISTORY: Ms. Meghan Bryan is a very pleasant 29-year-old, who presents to the Wound Center for evaluation of an ulceration of the right lateral foot in the region of the fifth metatarsophalangeal joint. The patient has completed a course of treatment with MatriStem. The patient has also received treatment with EpiFix for the ulceration of the right lateral foot. Ms. Bryan is presently performing dressing changes of Regranex for her right lateral foot ulceration. The patient has no complaints today. She denies any fever or chills. PHYSICAL EXAMINATION: VITAL SIGNS: Temperature 97.5, pulse 95, respirations 19, blood pressure 146/83. Accu-Chek 190. EXTREMITIES: An ulceration of the right lateral foot in the region of the fifth metatarsophalangeal joint is present, which measures approximately 0.7 x 0.5 cm. The dimensions of the wound at the time of the patient's last visit were approximately 0.7 x 0.7 cm. No purulent drainage is associated with the wound. No erythema of the skin surrounding the wound is present. No maceration of the skin of the periwound is noted. No significant edema of the right foot is present on today's exam. ASSESSMENT AND PLAN: 1. Ulceration of right lateral foot in the region of the fifth metatarsophalangeal joint. Dressing changes of Regranex will be continued on a daily basis after cleansing and irrigation. The patient will continue to perform her own dressing changes. I will see Ms. Bryan again in 2 weeks. 2. Diabetes mellitus. The patient's Accu-Chek in clinic today is 190. The patient has been reminded that for optimal wound healing her blood glucoses should remain below 150. 3. Arthritis. 4. Asthma. 5. Polycystic ovarian syndrome. 6. Cerebral palsy. Job ID: [id number]
== END 2019-08-24 11:36 | disposition home or self-care (01) ==
LOC: WCC 11:35
PROVIDERS: ATTEND Family Medicine
DX: E11.621 Type 2 diabetes mellitus with foot ulcer (principal); L97.519 Non-pressure chronic ulcer of other part of right foot with unspecified severity; M19.90 Unspecified osteoarthritis, unspecified site; J45.909 Unspecified asthma, uncomplicated; E28.2 Polycystic ovarian syndrome; G80.9 Cerebral palsy, unspecified
CPT/HCPCS: A4218; J2001

== ENCOUNTER 2019-09-19 11:08 | Outpatient (CLI) | payer BC ==
[~2019-09-19 11:08] MED LIST changes: -Lidocaine 2% PF 100 mg/5 ml Syringe ONE
--- NOTE | 2019-09-19 11:39 | PRG ---
DATE OF SERVICE: 09/19/2019 HISTORY: Ms. Meghan Bryan is a very pleasant 29-year-old, who presents to the wound center for evaluation of an ulceration of the right lateral foot in the region of the fifth metatarsophalangeal joint. The patient has completed a course of treatment with MatriStem. The patient has also received treatment with EpiFix for the ulceration of the right lateral foot. The patient is currently performing dressing changes of Regranex for her right lateral foot ulceration. The patient has no complaints today. She denies any fever or chills. PHYSICAL EXAMINATION: VITAL SIGNS: Temperature 97.5, pulse 99, respirations 19, and blood pressure 116/83. Accu-Chek 183. EXTREMITIES: An ulceration of the right lateral foot in the region of the fifth metatarsophalangeal joint is present, which measures approximately 0.7 x 0.4 cm. The dimensions of the wound at the time of the patient's last visit were approximately 0.7 x 0.5 cm. No purulent drainage is associated with the wound. No erythema of the skin surrounding the wound is present. No maceration of the skin of the periwound is noted. No significant edema of the right foot is present on exam today. ASSESSMENT AND PLAN: 1. Ulceration of right lateral foot in the region of the fifth metatarsophalangeal joint. Dressing changes of Regranex will be continued on a daily basis after cleansing and irrigation. The patient will continue to perform her own dressing changes. I will see Ms. Bryan again in 2 weeks. 2. Diabetes mellitus. The patient's Accu-Chek in clinic today is 183. The patient has been reminded that for optimal wound healing, her blood glucoses should remain below 150. 3. Arthritis. 4. Asthma. 5. Polycystic ovarian syndrome. 6. Cerebral palsy. Job ID: [id number]
== END 2019-09-19 11:09 | disposition home or self-care (01) ==
LOC: WCC 11:08
PROVIDERS: ATTEND Family Medicine
DX: E11.621 Type 2 diabetes mellitus with foot ulcer (principal); L97.519 Non-pressure chronic ulcer of other part of right foot with unspecified severity; J45.909 Unspecified asthma, uncomplicated; M19.90 Unspecified osteoarthritis, unspecified site; G80.9 Cerebral palsy, unspecified; E28.2 Polycystic ovarian syndrome
CPT/HCPCS: A4218

== ENCOUNTER 2019-10-03 13:45 | Outpatient (CLI) | payer BC ==
--- NOTE | 2019-10-03 11:03 | PRG ---
DATE OF SERVICE: 10/03/2019 HISTORY: Ms. Meghan Bryan is a very pleasant 29-year-old, who presents to the wound center for evaluation of an ulceration of the right lateral foot in the region of the 5th metatarsophalangeal joint. The patient has completed a course of treatment with MatriStem. The patient has also received treatment with EpiFix for the ulceration of the right lateral foot. The patient states she is presently performing dressing changes of Medihoney for her right lateral foot ulceration. She states she has misplaced her tube of Regranex. The patient has no other complaints today. She denies any fever or chills. PHYSICAL EXAMINATION: VITAL SIGNS: Temperature 98.0, pulse 83, respirations 18, and blood pressure 134/68. Accu-Chek 145. EXTREMITIES: An ulceration of the right lateral foot in the region of the 5th metatarsophalangeal joint is present, which measures approximately 0.6 x 0.4 cm. The dimensions of the wound at the time of the patient's last visit were approximately 0.7 x 0.4 cm. No purulent drainage is associated with the wound. No erythema of the skin surrounding the wound is present. No maceration of the skin of the periwound is noted. No significant edema of the right foot is present on exam today. ASSESSMENT AND PLAN: 1. Ulceration of right lateral foot in the region of the 5th metatarsophalangeal joint. Arrangements will be made for the home delivery of Santyl. These dressing changes are to be performed on a daily basis after cleansing and irrigation. The patient will continue to perform her own dressing changes. I will see Ms. Bryan again in 2 weeks or alternatively 2 weeks after beginning dressing changes of Santyl. The patient understands and is in agreement with the preceding treatment plan. 2. Diabetes mellitus. The patient's Accu-Chek in clinic today is 145. The patient has been reminded that for optimal wound healing her blood glucoses should remain below 150. 3. Arthritis. 4. Asthma. 5. Polycystic ovarian syndrome. 6. Cerebral palsy. Job ID: [id number]
== END 2019-10-03 13:46 | disposition home or self-care (01) ==
LOC: WCC 13:45
PROVIDERS: ATTEND Family Medicine
DX: E11.621 Type 2 diabetes mellitus with foot ulcer (principal); L97.519 Non-pressure chronic ulcer of other part of right foot with unspecified severity; M19.90 Unspecified osteoarthritis, unspecified site; J45.909 Unspecified asthma, uncomplicated; E28.2 Polycystic ovarian syndrome; G80.9 Cerebral palsy, unspecified
CPT/HCPCS: 36416; A4218

== ENCOUNTER 2019-11-02 09:30 | Outpatient (CLI) | payer BC ==
--- NOTE | 2019-11-02 11:42 | PRG ---
DATE OF SERVICE: 11/02/2019 HISTORY: Ms. Meghan Bryan is a very pleasant 29-year-old, who presents to the Wound Center for evaluation of an ulceration of the right lateral foot. Since the patient's last visit, Ms. Bryan has been performing dressing changes of Santyl on a daily basis after cleansing and irrigation. The patient has no complaints today. She denies any fever or chills. PHYSICAL EXAMINATION: VITAL SIGNS: Temperature 97.5, pulse 89, respirations 17, and blood pressure 140/90. Accu-Chek 135. EXTREMITIES: An ulceration of the right lateral foot is present, which measures approximately 0.7 x 0.3 cm. Granulation tissue is present within the wound margins. No purulent drainage is associated with the wound. No erythema of the skin surrounding the wound is present. No maceration of the skin of the periwound is noted. No significant edema of the right foot is present on exam today. ASSESSMENT AND PLAN: 1. Ulceration of right lateral foot as described above. Dressing changes of Santyl followed by Sandy will be initiated today. These dressing changes are to be performed on a daily basis after cleansing and irrigation. The patient will continue to perform her own dressing changes. I will see Ms. Bryan again in 1 week. Arrangements will be made for home delivery of dressing supplies. 2. Diabetes mellitus. The patient's Accu-Chek in clinic today is 135. The patient has been reminded that for optimal wound healing her blood glucoses should remain below 150. 3. Polycystic ovarian syndrome. Job ID: [id number]
[2019-11-02] MEDS ORDERED: Sodium Chloride 0.9% 15 ML NEB ONE (17:02)
[2019-11-02] MEDS ORDERED: Lidocaine 2% PF 100 mg/5 ml Syringe ONE (17:02)
== END 2019-11-02 09:31 | disposition home or self-care (01) ==
LOC: WCC 09:30
PROVIDERS: ATTEND Family Medicine
DX: E11.621 Type 2 diabetes mellitus with foot ulcer (principal); L97.519 Non-pressure chronic ulcer of other part of right foot with unspecified severity; E28.2 Polycystic ovarian syndrome
CPT/HCPCS: A4218; J2001

== ENCOUNTER 2019-11-09 10:15 | Outpatient (CLI) | payer BC ==
[2019-11-09] MEDS ORDERED: Sodium Chloride 0.9% 15 ML NEB ONE (10:46)
--- NOTE | 2019-11-09 15:07 | PRG ---
DATE OF SERVICE: 11/09/2019 HISTORY: Ms. Meghan Bryan is a very pleasant 29-year-old, who presents to the Wound Center for evaluation of an ulceration of the right lateral foot. Since the patient's last visit, Ms. Bryan has been performing dressing changes of Santyl and Promogran on a daily basis after cleansing and irrigation. Gauze and an Shankar bandage are being utilized as secondary dressings. The patient has no complaints today. She denies any fever or chills. PHYSICAL EXAMINATION: VITAL SIGNS: Pulse 91, respirations 20, and blood pressure 134/82. Accu-Chek 174. EXTREMITIES: An ulceration of the right lateral foot is present, which measures approximately 0.6 x 0.4 cm. Granulation tissue is present within the wound margins. No purulent drainage is associated with the wound. No erythema of the skin surrounding the wound is present. No maceration of the skin of the periwound is noted. No significant edema of the right foot is present on exam today. The dimensions of the wound at the time of the patient's visit on 11/02/2019 were approximately 0.7 x 0.3 cm. ASSESSMENT AND PLAN: 1. Ulceration of right lateral foot as described above. Dressing changes of Santyl followed by Hydrofera Blue Ready will be initiated today. These dressing changes are to be performed on a daily basis after cleansing and irrigation. The patient will continue to perform her own dressing changes. Arrangements will be made for the home delivery of Hydrofera Blue Ready. I will see Ms. Bryan again in 1 week. 2. Diabetes mellitus. The patient's Accu-Chek in clinic today is 174. The patient has been reminded that for optimal wound healing, her blood glucoses should remain below 150. 3. Polycystic ovarian syndrome. Job ID: [id number]
== END 2019-11-09 10:16 | disposition home or self-care (01) ==
LOC: WCC 10:15
PROVIDERS: ATTEND Family Medicine
DX: E11.621 Type 2 diabetes mellitus with foot ulcer (principal); L97.519 Non-pressure chronic ulcer of other part of right foot with unspecified severity; E28.2 Polycystic ovarian syndrome
CPT/HCPCS: A4218

== ENCOUNTER 2019-11-16 09:04 | Outpatient (CLI) | payer BC ==
--- NOTE | 2019-11-16 09:21 | PRG ---
DATE OF SERVICE: 11/16/2019 HISTORY: Ms. Meghan Bryan is a very pleasant 29-year-old, who presents to the Wound Center for evaluation of an ulceration of the right lateral foot. Since the patient's last visit, Ms. Bryan has been performing dressing changes of Santyl and Hydrofera Blue Ready for her ulceration. Gauze and an Shankar bandage are being utilized as secondary dressings. The patient has no complaints today. She denies any fever or chills. OBJECTIVE: VITAL SIGNS: Temperature 97.7, pulse 86, respirations 18, blood pressure 134/96. Accu-Chek 127. EXTREMITIES: An ulceration of the right lateral foot is present which measures approximately 0.5 x 0.4 cm. The dimensions of the wound at the time of the patient's visit on 11/09/2019 were approximately 0.6 x 0.4 cm. Granulation tissue is present within the wound margins. No purulent drainage is associated with the wound. No erythema of the skin surrounding the wound is present. No maceration of the skin of the periwound is noted. No significant edema of the right foot is present on exam today. ASSESSMENT AND PLAN: 1. Ulceration of right lateral foot as described above. Dressing changes of Santyl followed by Hydrofera Blue Ready will be continued on a daily basis after cleansing and irrigation. The patient will continue to perform her own dressing changes. Arrangements have been made for the home delivery of Hydrofera Blue Ready. Arrangements were previously made for the home delivery of Regranex. Ms. Bryan will schedule a followup visit in the wound center if her wound fails to heal completely with dressing changes of Santyl followed by Hydrofera Blue Ready or alternatively Regranex. The patient understands and is in agreement with the preceding treatment plan. 2. Diabetes mellitus. The patient's Accu-Chek in clinic today is 127. The patient has been reminded that for optimal wound healing, her blood glucoses should remain below 150. 3. Polycystic ovarian syndrome. Job ID: [id number]
[2019-11-16] MEDS ORDERED: Sodium Chloride 0.9% 15 ML NEB ONE (16:58)
== END 2019-11-16 09:05 | disposition home or self-care (01) ==
LOC: WCC 09:04
PROVIDERS: ATTEND Family Medicine
DX: E11.621 Type 2 diabetes mellitus with foot ulcer (principal); L97.519 Non-pressure chronic ulcer of other part of right foot with unspecified severity; E28.2 Polycystic ovarian syndrome
CPT/HCPCS: A4218

== ENCOUNTER 2020-12-02 18:16 | Emergency (ER) | payer BC, SELFPAY ==
[2020-12-02] MEDS ORDERED: Lidocaine 1% (PF) 30 ML VIAL ONE (20:48)
[2020-12-02] MEDS ORDERED: Boostrix 0.5 ML (Tdap) VIAL ONE (20:48)
== END 2020-12-02 21:44 | disposition home or self-care (01) ==
LOC: ERS 18:16
DX: S61.411A Laceration without foreign body of right hand, initial encounter (principal); W26.0XXA Contact with knife, initial encounter
CPT/HCPCS: 12001; 90715; J2001

== ENCOUNTER 2020-12-16 07:18 | Emergency (ER) | payer SELFPAY ==
[2020-12-16] MEDS ORDERED: Bacitracin 1 PK ONE (07:50)
== END 2020-12-16 07:52 | disposition home or self-care (01) ==
LOC: ERS 07:18
DX: Z48.02 Encounter for removal of sutures (principal)